=== PATIENT | female | born 1980 | race Caucasian/White ===

== ENCOUNTER 2017-05-27 11:50 | Observation (INO) | payer OTHER ==
[~2017-05-27] VITALS: Ht 162.6 cm; Wt 96.6 kg
--- NOTE | 2017-05-27 04:08 | NUR ---
NS 1000ML IVF STOPPED AT 0408 Addendum: 06/25/17 at 2159 by Gilmer Rodriguez RN WRONG DATE, IVF STOPPED AT 05/28 Addendum: 06/25/17 at 2203 by Gilmer Rodriguez RN AND WRONG TIME
[~2017-05-27 11:50] MED LIST: ACET-8386 PO; AMIT25TA28; AMLO-27; Pantoprazole Sodium PO
[2017-05-27 12:15] VITALS: BP 146/82
[2017-05-27] MEDS ORDERED: NORE0.3532 PO (12:25)
[2017-05-27] MEDS ORDERED: IND20 PO (12:25)
--- NOTE | 2017-05-27 12:25 | NUR ---
PATIENT PRESENTS TO ED WITH LLQ PAIN THAT RADIATES TO LOW BACK AND PELVIC AREAS. DENIES PAINFUL URINATION.DENIES INJURY. Hx OF RT OVARIAN CYST,CHOLECYSTECTOMY,CSECTION X2,LT. WRIST SURGERY .DENIES N/V/D; SKIN IS PINK/WARM/DRY; AAOX4 WITH EVEN AND STEADY GAIT; LUNGS CLEAR BL; HR EVEN AND REGULAR; PT DENIES ANY FEVER, CP, SOB, OR COUGH AT THIS TIME; PATIENT STATES PAIN OF 6/10 AT THIS TIME;PATIENT POSITIONED FOR COMFORT; HOB ELEVATED; BEDRAILS UP X2; BED DOWN. ALL MONITORS IN PLACED;ER MD MADE AWARE OF PT STATUS.
--- NOTE | 2017-05-27 12:33 | NUR ---
DR VICENTE AT BEDSIDE.
[2017-05-27] MEDS ORDERED: KETOROLAC 60 MG/2 ML VIAL IM ONE (14:40)
--- NOTE | 2017-05-27 14:51 | NUR ---
WENT TO CT SCAN ACCOMPANIED BY TECH.
--- NOTE | 2017-05-27 14:58 | NUR ---
BACK FROM CT SACN ACCOMPANIED BY TECH.
[2017-05-27] MEDS ORDERED: metroNIDAZOLE 500 MG/NS PREMIX 100 ML IV ONE (15:40)
[2017-05-27] MEDS ORDERED: HYDROmorphone 1 MG/ML AMP IVP ONE (15:40)
[2017-05-27] MEDS ORDERED: cefTRIAXone 1,000 MG VIAL ONE (15:56)
[2017-05-27 16:18] LABS: BASOPHILS # (AUTO) 0.2 K/uL (0.00-0.22); BASOPHILS % (AUTO) 1.6 % (0.0-2.0); EOSINOPHILS # (AUTO) 0.1 K/uL (0-0.4); EOSINOPHILS % (AUTO) 0.8 % (0.0-4.0); HEMATOCRIT 40.5 % (36-48); HEMOGLOBIN 13.3 g/dL (12.0-16.0); LYMPHOCYTES # (AUTO) 2.5 K/uL (2.5-16.5); LYMPHOCYTES % (AUTO) 22.8 % (20.5-51.1); MEAN CORPUSCULAR HEMOGLOBIN 28 pg (27-31); MEAN CORPUSCULAR HGB CONC 33 g/dL (33-37); MEAN CORPUSCULAR VOLUME 85 fL (80-94); MONOCYTES # (AUTO) 0.7 K/uL (0.8-1.0); MONOCYTES % (AUTO) 6.5 % (1.7-9.3); NEUTROPHILS # (AUTO) 7.5 K/uL (1.8-7.7); NEUTROPHILS % (AUTO) 68.3 % (42.2-75.2); PLATELET COUNT (AUTO) 291 K/uL (140-450); RED BLOOD CELL COUNT(AUTO) 4.76 MIL/uL (4.20-5.40); RED CELL DISTRIBUTION WIDTH 12.8 % (11.6-13.7)
--- NOTE | 2017-05-27 16:26 | NUR ---
1 ST BLOOD CULTURE WAS DRAWN AT AROUND 1548;2ND VIAL AT AROUND 1558;
[2017-05-27 16:33] LABS: ANION GAP 15.3 (8-16); CARBON DIOXIDE 25.3 mmol/L (21-32); CREATININE 0.6 mg/dL (0.6-1.3); POTASSIUM 3.6 mmol/L (3.5-5.1)
[2017-05-27 16:39] LABS: ALBUMIN 4.1 g/dL (3.4-5.0); TOTAL BILIRUBIN 0.7 mg/dL (0.0-1.0)
[2017-05-27 16:42] LABS: PROTHROMBIN TIME 10.3 secs (10.8-13.4)
[2017-05-27 17:47] LABS: APPEARANCE,URINE CLEAR (CLEAR); BILIRUBIN,URINE 1+ (NEGATIVE); BLOOD, URINE NEGATIVE (NEGATIVE); COLOR,URINE YELLOW (YELLOW); LEUKOCYTE ESTERASE ,URINE NEGATIVE (NEGATIVE); NITRITE, URINE NEGATIVE (NEGATIVE); UGLUCOSE NEGATIVE (NEGATIVE)
--- NOTE | 2017-05-27 17:56 | NUR ---
PT VERBALIZES DECREASED OF PAIN FROM 8/10 TO 2/10;NO FACIAL GRIMMACING NOTED;WILL CONTINUE TO MONITOR PT.
[2017-05-27 18:01] LABS: BARBITURATE, URINE NEG. ng/ml (NEG <=200); BENZODIAZEPINE, URINE NEG. ng/mL (NEG <=200); CANNABINOID, URINE NEG. ng/mL (NEG <=50); COCAINE, URINE NEG. ng/mL (NEG <=300); OPIATE, URINE NEG. ng/mL (NEG <=2000); PHENCYCLIDINE SCREEN,URINE NEG. ng/mL (NEG <=25)
[2017-05-27] MEDS ORDERED: ONDANSETRON 4 MG/2 ML VIAL IVP ONE (18:05)
[2017-05-27] MEDS: NACL 0.9% 1,000 ML IV SCH (18:08)
[2017-05-27] MEDS ORDERED: ACETAMINOPHEN 325 MG TAB PO PRN (18:10)
[2017-05-27] MEDS ORDERED: MORPHINE SULFATE 2 MG/ML SYR IVP PRN (18:10)
[2017-05-27] MEDS ORDERED: LORazepam 2 MG/ML VIAL IVP PRN (18:10)
[2017-05-27] MEDS ORDERED: ONDANSETRON 4 MG/2 ML VIAL IVP PRN (18:10)
[2017-05-27] MEDS ORDERED: HYDROcodone/APAP 5/325 MG 1 TAB TAB PO PRN (18:10)
[2017-05-27] MEDS ORDERED: LEVOFLOXACIN 750 MG/D5W PREMIX 150 ML IV SCH (19:00)
--- NOTE | 2017-05-27 19:02 | NUR ---
TRIED TO GIVE REPORT;THEY SAID THEY WILL CALL BACK RN TALITA IS BUSY RT NOW;
--- NOTE | 2017-05-27 19:09 | NUR ---
Patient will be admitted to care of DR FISCHER. Admited to MS. Will go to room 104 A. Belongings list completed. Report to ALEX RECINOS.
[2017-05-27 19:30] VITALS: BP 120/70
--- NOTE | 2017-05-27 19:30 | NUR ---
PATIENT ADMITTED TO THE UNIT FROM THE EMERGENCY DEPARTMENT. PATIENT IS AWAKE, ALERT AND ORIENTED. PATIENT'S FAMILY IS AT BEDSIDE. PATIENT IS AMBULATORY. NO SIGNS AND SYMPTOMS OF DISTRESS NOTED. NO COMPLAINT'S OF PAIN AT THIS TIME. SKIN IS INTACT. IV SITE NOTED ON LEFT AC, SALINE LOCKED. BED IN LOWEST POSITION, SIDE RAILS UP AND CALL LIGHT WITHIN REACH, WILL CONTINUE TO MONITOR.
--- NOTE | 2017-05-27 20:19 | NUR ---
LEVAQUIN 750MG/DEXTROSE 5% PREMIX GIVEN VIA IVPB. RUNNING AT 100ML/HR
--- NOTE | 2017-05-27 21:49 | NUR ---
LEVAQUIN 750MG/DEXTROSE 5% PREMIX FINISHED.
--- NOTE | 2017-05-27 22:00 | NUR ---
CHECKED ON PATIENT, PATIENT IS AWAKE WATCHING TV ON HER PHONE. NO SIGNS AND SYMPTOMS OF DISTRESS NOTED. NO COMPLAINTS OF PAIN AT THIS TIME. WILL CONTINUE TO MONITOR.
[2017-05-27] MEDS: metroNIDAZOLE 500 MG/NS PREMIX 100 ML IV SCH (22:17)
--- NOTE | 2017-05-27 22:17 | NUR ---
FLAGYL 500MG/SODIUM CHLORIDE 0.9% PREMIX STARTED IVPB. RUNNING AT 100ML/HR
[2017-05-28] VITALS: BP 112/70
[2017-05-28] MEDS: NACL 0.9% 1,000 ML IV SCH (04:08)
[2017-05-28] MEDS: metroNIDAZOLE 500 MG/NS PREMIX 100 ML IV SCH (04:29)
--- NOTE | 2017-05-28 04:29 | NUR ---
FLAGYL 500MG/SODIUM CHLORIDE 0.9% PREMIX STARTED IVPB. RUNNING AT 100ML/HR
--- NOTE | 2017-05-28 05:29 | NUR ---
FLAGYL 500MG/SODIUM CHLORIDE 0.9% PREMIX 100ML ADMINISTERED VIA IVPB. FINISHED AT 528
--- NOTE | 2017-05-28 06:08 | NUR ---
NS 1000ML IVF STOPPED AT 0608
--- NOTE | 2017-05-28 07:11 | NUR ---
PATIENT REPORT GIVEN TO MORNING NURSE. PATIENT IS IN STABLE CONDITION
--- NOTE | 2017-05-28 07:20 | NUR ---
REPORT RECEIVED FROM FULFILLMENT MAIL CLERK NURSE, PT RESTING QUIETLY IN NAD, RESP EVEN UNLABORED, SKIN WARM DRY COLOR WNL, PT DENIES N/V, PT STATES PAIN IS 5/10 ABD BUT DENIES NEED FOR PAIN MED, ABD SOFT NON TENDER, IVF INFUSING WELL, SITE CLEAR, PLAN OF CARE REVIEWED, PT VERBALIZED FULL UNDERSTANDING, CALL PACHECO WITHIN REACH, SIDE RAILS UP X2, WILL COTINUE TO MONITOR.
[2017-05-28 07:34] LABS: BASOPHILS # (AUTO) 0.2 K/uL (0.00-0.22); EOSINOPHILS # (AUTO) 0.1 K/uL (0-0.4); EOSINOPHILS % (AUTO) 0.9 % (0.0-4.0); HEMATOCRIT 37.4 % (36-48); HEMOGLOBIN 12.3 g/dL (12.0-16.0); LYMPHOCYTES # (AUTO) 2.4 K/uL (2.5-16.5); LYMPHOCYTES % (AUTO) 29.2 % (20.5-51.1); MEAN CORPUSCULAR HEMOGLOBIN 28 pg (27-31); MEAN CORPUSCULAR HGB CONC 33 g/dL (33-37); MEAN CORPUSCULAR VOLUME 86 fL (80-94); MONOCYTES # (AUTO) 0.8 K/uL (0.8-1.0); MONOCYTES % (AUTO) 9.4 % (1.7-9.3); NEUTROPHILS # (AUTO) 4.9 K/uL (1.8-7.7); NEUTROPHILS % (AUTO) 58.5 % (42.2-75.2); PLATELET COUNT (AUTO) 234 K/uL (140-450); RED BLOOD CELL COUNT(AUTO) 4.35 MIL/uL (4.20-5.40); RED CELL DISTRIBUTION WIDTH 12.7 % (11.6-13.7); WHITE BLOOD COUNT (AUTO) 8.4 K/uL (4.8-10.8)
[2017-05-28 07:48] LABS: ANION GAP 14.2 (8-16); CARBON DIOXIDE 25.8 mmol/L (21-32); CREATININE 0.6 mg/dL (0.6-1.3)
[2017-05-28 08:00] VITALS: BP 128/78
--- NOTE | 2017-05-28 08:50 | NUR ---
SCHEDULED LOVENOX GIVEN SQ, PT EMMANUEL WELL, PT SITTING UP EATING BREAKFAST, DENIES N/V, DENIES PAIN, DENIES ANY IMMEDIATE NEEDS, WILL CONTINUE TO MONITOR.
[2017-05-28] MEDS ORDERED: ENOXAPARIN 30 MG/0.3 ML SYR SUBQ SCH (09:00)
[2017-05-28] MEDS ORDERED: METR500T1 PO (10:24)
[2017-05-28] MEDS ORDERED: ACET-2869 PO (10:24)
--- NOTE | 2017-05-28 12:05 | NUR ---
DC INSTRUCTION AND RX GIVEN AND EXPLAINED TO PT, PT VERBALIZED FULL UNDERSTANDING, IV DC'D, CATH TIP INTACT, BLEEDING CONTROLLED, PT EMMANUEL WELL, PT C/O ABD PAIN, OFFERED NORCO BUT PT STATES SHE IS DRIVING HERSELF HOME, SO SHE PREFERS TO TAKE MED WHEN SHE GETS HOME, PT STATES PAIN IS TOLERABLE AT THIS TIME, PT UP OUT OF BED ON HER OWN, AMBULATES WITH STEADY GAIT, DC HOME NOW, ESCORTED OUT TO FRONT LOBBY.
== END 2017-05-28 12:05 | disposition home or self-care (01) ==
LOC: MED 11:50 → MTU 18:22 → UNDOADMIN 18:22 → MTU 18:30
PROVIDERS: ADMIT Hospitalist; ATTEND Hospitalist
DX: K57.92 Diverticulitis of intestine, part unspecified, without perforation or abscess without bleeding (principal); I10 Essential (primary) hypertension; E11.9 Type 2 diabetes mellitus without complications; G43.909 Migraine, unspecified, not intractable, without status migrainosus; E66.9 Obesity, unspecified; Z68.35 Body mass index [BMI] 35.0-35.9, adult; Z98.890 Other specified postprocedural states; N83.209 Unspecified ovarian cyst, unspecified side
CPT/HCPCS: 36415; 71010; 74176; 76830; 76856; 80048; 80053; 80305; 81003; 81025; 82150; 83690; 83735; 85025; 85610; 85730; 87081; 93005; 96361; 96365; 96366; 96367; 96372; 96375; 96376; 99285; G0378; J0696; J1170; J1650; J1885; J1956; J2405; J3490; J7030; J7060; Q0092; 96368

== ENCOUNTER 2017-06-01 20:10 | Observation (INO) | payer OTHER ==
[~2017-06-01] VITALS: Ht 162.6 cm; Wt 97.5 kg
[~2017-06-01 20:10] MED LIST changes: +ACET-2869 PO; -ACET-8386 PO; -AMIT25TA28; -AMLO-27; +IND20 PO; +METR500T1 PO; +NORE0.3532 PO; -Pantoprazole Sodium PO
[2017-06-01 20:24] VITALS: BP 145/90
[2017-06-01] MEDS ORDERED: metroNIDAZOLE 500 MG/NS PREMIX 100 ML IV ONE (20:40)
[2017-06-01] MEDS ORDERED: FAMOTIDINE 20 MG/2 ML VIAL IVP ONE (20:40)
[2017-06-01] MEDS ORDERED: LEVOFLOXACIN 500 MG/D5W PREMIX 100 ML IV ONE (20:40)
[2017-06-01] MEDS ORDERED: NACL 0.9% 1,000 ML IV ONE (20:40)
[2017-06-01] MEDS ORDERED: NAPR500T1 PO (20:43)
[2017-06-01] MEDS ORDERED: ONDA4ODT1 PO ×2 (20:43→20:49)
[2017-06-01] MEDS ORDERED: IND20 PO (20:49)
[2017-06-01] MEDS ORDERED: ACET-2869 PO (20:49)
[2017-06-01] MEDS ORDERED: METR250T2 PO (20:49)
[2017-06-01 21:26] LABS: BASOPHILS # (AUTO) 0.2 K/uL (0.00-0.22); BASOPHILS % (AUTO) 1.5 % (0.0-2.0); EOSINOPHILS # (AUTO) 0.1 K/uL (0-0.4); EOSINOPHILS % (AUTO) 0.8 % (0.0-4.0); HEMATOCRIT 40.2 % (36-48); HEMOGLOBIN 12.9 g/dL (12.0-16.0); LYMPHOCYTES # (AUTO) 2.6 K/uL (2.5-16.5); LYMPHOCYTES % (AUTO) 22.4 % (20.5-51.1); MEAN CORPUSCULAR HEMOGLOBIN 28 pg (27-31); MEAN CORPUSCULAR HGB CONC 32 g/dL (33-37); MEAN CORPUSCULAR VOLUME 86 fL (80-94); MONOCYTES # (AUTO) 0.7 K/uL (0.8-1.0); MONOCYTES % (AUTO) 6.1 % (1.7-9.3); NEUTROPHILS % (AUTO) 69.2 % (42.2-75.2); PLATELET COUNT (AUTO) 333 K/uL (140-450); RED CELL DISTRIBUTION WIDTH 12.8 % (11.6-13.7); WHITE BLOOD COUNT (AUTO) 11.6 K/uL (4.8-10.8)
[2017-06-01 21:31] LABS: BILIRUBIN,URINE NEGATIVE (NEGATIVE); BLOOD, URINE NEGATIVE (NEGATIVE); LEUKOCYTE ESTERASE ,URINE TRACE (NEGATIVE); NITRITE, URINE NEGATIVE (NEGATIVE); PH,URINE 5.5 (5.0-9.0); UGLUCOSE NEGATIVE (NEGATIVE)
[2017-06-01 21:33] LABS: ANION GAP 12.4 (8-16); CARBON DIOXIDE 28.4 mmol/L (21-32); CREATININE 0.7 mg/dL (0.6-1.3); POTASSIUM 3.8 mmol/L (3.5-5.1)
[2017-06-01 21:35] LABS: APPEARANCE,URINE HAZY (CLEAR)
[2017-06-01 21:36] LABS: COLOR,URINE AMBER (YELLOW)
[2017-06-01 21:38] LABS: ALBUMIN 3.8 g/dL (3.4-5.0); TOTAL BILIRUBIN 0.3 mg/dL (0.0-1.0)
[2017-06-01 21:43] LABS: RBC,URINE NONE SEEN /HPF (0-5); WBC,URINE 0-5 (RARE) /HPF (0-5)
[2017-06-01 22:10] VITALS: BP 118/70
[2017-06-01] MEDS: NACL 0.9% 1,000 ML IV SCH (23:25)
[2017-06-01] MEDS ORDERED: MORPHINE SULFATE 2 MG/ML SYR IVP PRN (23:35)
[2017-06-01] MEDS ORDERED: ONDANSETRON 4 MG/2 ML VIAL IVP PRN (23:35)
[2017-06-01] MEDS ORDERED: ACETAMINOPHEN EXTRA STRENGTH 500 MG TAB PO PRN (23:35)
[2017-06-02] VITALS: BP 107/57
[2017-06-02 04:00] VITALS: BP 111/63
[2017-06-02] MEDS: metroNIDAZOLE 500 MG/NS PREMIX 100 ML IV SCH ×3 (04:55→20:09)
[2017-06-02 06:58] LABS: BASOPHILS # (AUTO) 0.2 K/uL (0.00-0.22); BASOPHILS % (AUTO) 2.1 % (0.0-2.0); EOSINOPHILS # (AUTO) 0.1 K/uL (0-0.4); EOSINOPHILS % (AUTO) 0.9 % (0.0-4.0); HEMATOCRIT 36.8 % (36-48); HEMOGLOBIN 12.2 g/dL (12.0-16.0); LYMPHOCYTES # (AUTO) 2.4 K/uL (2.5-16.5); LYMPHOCYTES % (AUTO) 28.2 % (20.5-51.1); MEAN CORPUSCULAR HEMOGLOBIN 28 pg (27-31); MEAN CORPUSCULAR HGB CONC 33 g/dL (33-37); MEAN CORPUSCULAR VOLUME 85 fL (80-94); MONOCYTES # (AUTO) 0.6 K/uL (0.8-1.0); MONOCYTES % (AUTO) 7.6 % (1.7-9.3); NEUTROPHILS # (AUTO) 5.2 K/uL (1.8-7.7); NEUTROPHILS % (AUTO) 61.2 % (42.2-75.2); PLATELET COUNT (AUTO) 283 K/uL (140-450); RED BLOOD CELL COUNT(AUTO) 4.34 MIL/uL (4.20-5.40); RED CELL DISTRIBUTION WIDTH 12.9 % (11.6-13.7); WHITE BLOOD COUNT (AUTO) 8.5 K/uL (4.8-10.8)
[2017-06-02 07:31] LABS: ALBUMIN 3.2 g/dL (3.4-5.0); ANION GAP 12.8 (8-16); CARBON DIOXIDE 25.7 mmol/L (21-32); CREATININE 0.6 mg/dL (0.6-1.3); PHOSPHORUS 3.6 mg/dL (2.5-4.9); POTASSIUM 3.5 mmol/L (3.5-5.1); TOTAL BILIRUBIN 0.5 mg/dL (0.0-1.0)
[2017-06-02 07:43] VITALS: BP 108/67
[2017-06-02] MEDS: PANTOPRAZOLE 40 MG TABEC PO SCH (08:54)
[2017-06-02] MEDS: HYDROcodone/APAP 5/325 MG 1 TAB TAB PO PRN ×2 (11:42→20:07)
[2017-06-02 11:55] VITALS: BP 130/80
[2017-06-02 15:56] VITALS: BP 122/71
[2017-06-02] MEDS: NACL 0.9% 1,000 ML IV SCH (16:42)
[2017-06-02 20:00] VITALS: BP 139/87
[2017-06-02] MEDS ORDERED: LEVOFLOXACIN 500 MG/D5W PREMIX 100 ML IV SCH (21:00)
[2017-06-03] VITALS: BP 102/54
[2017-06-03 04:00] VITALS: BP 102/60
[2017-06-03] MEDS: metroNIDAZOLE 500 MG/NS PREMIX 100 ML IV SCH (05:27)
[2017-06-03 06:01] LABS: BASOPHILS # (AUTO) 0.3 K/uL (0.00-0.22); BASOPHILS % (AUTO) 3.7 % (0.0-2.0); EOSINOPHILS # (AUTO) 0.1 K/uL (0-0.4); EOSINOPHILS % (AUTO) 1.1 % (0.0-4.0); HEMATOCRIT 34.6 % (36-48); HEMOGLOBIN 11.6 g/dL (12.0-16.0); LYMPHOCYTES # (AUTO) 2.9 K/uL (2.5-16.5); LYMPHOCYTES % (AUTO) 36.6 % (20.5-51.1); MEAN CORPUSCULAR HEMOGLOBIN 29 pg (27-31); MEAN CORPUSCULAR HGB CONC 33 g/dL (33-37); MEAN CORPUSCULAR VOLUME 86 fL (80-94); MONOCYTES # (AUTO) 0.7 K/uL (0.8-1.0); MONOCYTES % (AUTO) 8.4 % (1.7-9.3); NEUTROPHILS # (AUTO) 3.9 K/uL (1.8-7.7); NEUTROPHILS % (AUTO) 50.2 % (42.2-75.2); PLATELET COUNT (AUTO) 253 K/uL (140-450); RED BLOOD CELL COUNT(AUTO) 4.05 MIL/uL (4.20-5.40); RED CELL DISTRIBUTION WIDTH 12.7 % (11.6-13.7); WHITE BLOOD COUNT (AUTO) 7.9 K/uL (4.8-10.8)
[2017-06-03 06:26] LABS: ANION GAP 10.8 (8-16); CARBON DIOXIDE 25.9 mmol/L (21-32); CREATININE 0.6 mg/dL (0.6-1.3); POTASSIUM 3.7 mmol/L (3.5-5.1)
[2017-06-03 08:00] VITALS: BP 126/72
[2017-06-03] MEDS: NACL 0.9% 1,000 ML IV SCH (08:45)
[2017-06-03] MEDS: PANTOPRAZOLE 40 MG TABEC PO SCH (08:51)
[2017-06-03] MEDS: HYDROcodone/APAP 5/325 MG 1 TAB TAB PO PRN (08:56)
== END 2017-06-03 11:20 | disposition home or self-care (01) ==
LOC: MED 20:10 → MTU 21:53
PROVIDERS: ADMIT Hospitalist; ATTEND Hospitalist
DX: K92.2 Gastrointestinal hemorrhage, unspecified (principal); I10 Essential (primary) hypertension; G43.909 Migraine, unspecified, not intractable, without status migrainosus; E66.9 Obesity, unspecified; K57.92 Diverticulitis of intestine, part unspecified, without perforation or abscess without bleeding
CPT/HCPCS: 36415; 80048; 80053; 81001; 81025; 82150; 83690; 83735; 84100; 85025; 87081; 96361; 96365; 96366; 96367; 96375; 99285; G0378; J1956; J2270; J2405; J3490; J7030

== ENCOUNTER 2017-07-21 22:19 | Inpatient (IN) | payer OTHER ==
[~2017-07-21] VITALS: Ht 162.6 cm; Wt 95.7 kg
[~2017-07-21 22:19] MED LIST changes: +METR250T2 PO; -METR500T1 PO; +ONDA4ODT1 PO
[2017-07-21 22:32] VITALS: BP 128/85
--- NOTE | 2017-07-21 22:57 | NUR ---
PT. AMBULATES TO ER BED 3
--- NOTE | 2017-07-21 23:00 | NUR ---
36Y/F PT. PRESENTS TO ED WITH C/O ABDOMINAL PAIN X 1 DAY. PT. STATES PAIN WITH N/V/D, NO FEVER. HX. DIVERTICULITIS. AAO X4, AMBULATORY WITH STEADY GAIT. RESPIRATIONS ROOM AIR, EVEN AND UNLABORED. ABDOMEN SOFT, NON TENDER, HYPOACTIVE BS X4, C/O FEELING NAUSEATED, PAIN 8/10. VS, HR 114, ER MD MADE AWARE OF PT. STATUS.
--- NOTE | 2017-07-21 23:10 | NUR ---
Patient being evaluated by DR. PMIENTEL at bedside.
[2017-07-21] MEDS ORDERED: NACL 0.9% 1,000 ML IV ONE (23:21)
[2017-07-21] MEDS ORDERED: MORPHINE SULFATE 4 MG/ML SYR IVP ONE (23:25)
[2017-07-21] MEDS ORDERED: ONDANSETRON 4 MG/2 ML VIAL IVP ONE (23:25)
[2017-07-21 23:38] LABS: HEMATOCRIT 36.1 % (36-48); HEMOGLOBIN 11.9 g/dL (12.0-16.0); MEAN CORPUSCULAR HEMOGLOBIN 28 pg (27-31); MEAN CORPUSCULAR HGB CONC 33 g/dL (33-37); MEAN CORPUSCULAR VOLUME 85 fL (80-94); PLATELET COUNT (AUTO) 230 K/uL (140-450); RED BLOOD CELL COUNT(AUTO) 4.23 MIL/uL (4.20-5.40); RED CELL DISTRIBUTION WIDTH 13.8 % (11.6-13.7); WHITE BLOOD COUNT (AUTO) 14.4 K/uL (4.8-10.8)
[2017-07-21 23:43] LABS: BILIRUBIN,URINE NEGATIVE (NEGATIVE); BLOOD, URINE 3+ (NEGATIVE); COLOR,URINE YELLOW (YELLOW); LEUKOCYTE ESTERASE ,URINE NEGATIVE (NEGATIVE); NITRITE, URINE NEGATIVE (NEGATIVE); UGLUCOSE NEGATIVE (NEGATIVE)
[2017-07-21 23:49] LABS: ANION GAP 13.8 (8-16); CARBON DIOXIDE 23.5 mmol/L (21-32); CREATININE 0.6 mg/dL (0.6-1.3); POTASSIUM 3.3 mmol/L (3.5-5.1)
[2017-07-21 23:49] LABS: APPEARANCE,URINE SLIGHTLY HAZY (CLEAR)
[2017-07-21 23:55] LABS: ALBUMIN 3.1 g/dL (3.4-5.0); TOTAL BILIRUBIN 1.3 mg/dL (0.0-1.0)
[2017-07-21 23:56] LABS: LYMPHOCYTES % (MANUAL) 11 % (20-46); MONOCYTES % (MANUAL) 6 % (5-12)
[2017-07-22] LABS: RBC,URINE 20-50 /HPF (0-5)
[2017-07-22] MEDS ORDERED: HYDROmorphone 1 MG/ML AMP IVP ONE (00:05)
[2017-07-22] MEDS ORDERED: metroNIDAZOLE 500 MG/NS PREMIX 100 ML IV ONE ×2 (00:10→06:15)
[2017-07-22] MEDS ORDERED: PIPERACILLIN/TAZOBACTAM 3.375 GM in DEXTROSE 5% 50 ML IV ONE (00:10)
[2017-07-22] MEDS ORDERED: PIPERACILLIN/TAZOBACTAM 3.375 GM VIAL IV ONE (00:21)
[2017-07-22] MEDS ORDERED: NACL 0.9% 1,000 ML IV ONE (00:25)
--- NOTE | 2017-07-22 00:30 | NUR ---
O2 SAT ROOM AIR 88% PLACE ON O2 2 LPM VIA NC O2 SAT 99%. ER MADE AWARE.
[2017-07-22] MEDS: NACL 0.9% 1,000 ML IV SCH ×3 (01:00→20:26)
[2017-07-22] MEDS ORDERED: HYDROmorphone 1 MG/ML AMP IVP PRN (01:00)
[2017-07-22] MEDS ORDERED: ALUMINUM HYD/MAG/SIMETHICONE 30 ML UDC PO PRN (01:05)
[2017-07-22] MEDS ORDERED: ZOLPIDEM 5 MG TAB PO PRN (01:05)
[2017-07-22] MEDS ORDERED: diphenhydrAMINE 50 MG/ML VIAL IVP PRN (01:05)
[2017-07-22] MEDS ORDERED: guaiFENesin DM 200/20 MG-10 ML 10 ML UDC PO PRN (01:05)
[2017-07-22] MEDS ORDERED: ACETAMINOPHEN 650 MG SUPP RC PRN (01:05)
[2017-07-22] MEDS ORDERED: MAGNESIUM OXIDE 400 MG TAB PO PRN (01:05)
[2017-07-22] MEDS ORDERED: HYDROcodone/APAP 5/325 MG 1 TAB TAB PO PRN ×2 (01:05)
[2017-07-22] MEDS ORDERED: BISACODYL 10 MG SUPP RC PRN (01:05)
[2017-07-22] MEDS ORDERED: POTASSIUM CHLORIDE 40 MEQ, LIDOCAINE 1% 25 MG in NACL 0.9% 250 ML IV PRN (01:05)
[2017-07-22] MEDS ORDERED: SODIUM PHOSPHATE 118 ML ENEM RC PRN (01:05)
[2017-07-22] MEDS ORDERED: LORazepam 2 MG/ML VIAL IVP PRN (01:05)
[2017-07-22] MEDS ORDERED: ACETAMINOPHEN 325 MG TAB PO PRN (01:05)
[2017-07-22] MEDS ORDERED: MAG SULF 2000 MG/WATER PREMIX 50 ML IV PRN (01:05)
[2017-07-22] MEDS ORDERED: ALBUTEROL 0.083% 2.5 MG/3 ML NEBU INH PRN (01:05)
[2017-07-22] MEDS ORDERED: POTASSIUM CHLORIDE 10 MEQ TABER PO PRN (01:05)
[2017-07-22] MEDS ORDERED: IPRATROPIUM 0.02% 0.5 MG/2.5 ML NEBU INH PRN (01:05)
[2017-07-22] MEDS ORDERED: cloNIDine 0.1 MG TAB PO PRN (01:05)
[2017-07-22] MEDS ORDERED: DOCUSATE SODIUM 250 MG GELCAP PO PRN (01:05)
--- NOTE | 2017-07-22 01:55 | NUR ---
Patient will be admitted to care of . Admited to TELEMETRY. Will go to [id number]. Belongings list completed. Report to ALEX NAVARRO.
--- NOTE | 2017-07-22 02:05 | NUR ---
PT ARRIVED FROM ER [facility]. PT IS ON O2 2L NC. NO SIGNS OF ACUTE DISTRESS NOTED. BREATH SOUNDS CLEAR UPON AUSCULTATION. RESPIRATIONS EVEN AND UNLABORED. SKIN COLOR APPROPRIATE TO ETHNICITY. SKIN TEMP WARM TO TOUCH. SKIN INTACT. IV ACCESS INTACT, PATENT AND ASYMPTOMATIC. AMBULATORY. PLAN OF CARE DISCUSSED, PT VERBALIZED UNDERSTANDING. BED IN LOW POSITION, BILATERAL HALF SIDE RAILS UP, CALL LIGHT WITHIN REACH, WILL CONTINUE TO MONITOR.
[2017-07-22] MEDS: MORPHINE SULFATE 2 MG/ML SYR IVP PRN ×3 (03:09→20:13)
--- NOTE | 2017-07-22 03:20 | NUR ---
ADMINISTERED K DUR 40MEQ PRN ONCE. PT POTASSIUM LEVEL IS 3.3. PT TOLERATED WELL, WILL CONTINUE TO MONITOR.
[2017-07-22 04:00] VITALS: BP 103/60
[2017-07-22] MEDS: metroNIDAZOLE 500 MG/NS PREMIX 100 ML IV SCH ×3 (06:15→20:25)
--- NOTE | 2017-07-22 06:20 | NUR ---
PT IS SLEEPING, AROUSABLE TO VOICE. NO SIGNS OF ACUTE DISTRESS NOTED. RESPIRATIONS EVEN AND UNLABORED. BED IN LOW POSITION, BILATERAL HALF SIDE RAILS UP, CALL LIGHT WITHIN REACH, WILL CONTINUE TO MONITOR.
--- NOTE | 2017-07-22 07:15 | NUR ---
RECEIVED PT REPORT FROM [employer] AT PT BEDSIDE. PT IS AOX4. IV NOTED TO THE LEFT AC, 18 G, RUNNING NS 100ML/HR. PT C/O OF RIGHT LOWER ABD PAIN, 06/11. WILL MEDICATE. RESPIRATORY EVEN AND NO ACUTE S/S OF DISTRESS NOTED. BED IN LOWEST POSITION, CALL LIGHT WITHIN REACH.
--- NOTE | 2017-07-22 07:38 | NUR ---
ENDORSED PT TO AM NURSE FOR CONTINUITY OF CARE. PT IS IN STABLE CONDITION.
[2017-07-22 08:00] VITALS: BP 118/66
[2017-07-22] MEDS: PROPRANOLOL 20 MG TAB PO SCH ×2 (08:49→20:24)
[2017-07-22] MEDS: LEVOFLOXACIN 500 MG/D5W PREMIX 100 ML IV SCH (08:50)
--- NOTE | 2017-07-22 10:50 | NUR ---
PT HAS BEEN SEEN BY DR. GOLDMAN. DR GOLDMAN WILL PUT IN NEW ORDERS.
--- NOTE | 2017-07-22 11:00 | NUR ---
SPOKE WITH . ORDERED TO INCREASE DILAUDID TO 1MG PRN AND KEEP THE SAME TIME INTERVAL. ORDERED TO ADVANCE THE DIET TO FULL LIQUID.
[2017-07-22] MEDS: ONDANSETRON 4 MG/2 ML VIAL IVP PRN ×2 (11:37→20:20)
[2017-07-22] MEDS: HYDROmorphone 1 MG/ML AMP IVP PRN ×3 (11:37→21:53)
--- NOTE | 2017-07-22 12:44 | NUR ---
PATIENT HAS BEEN SCREENED AND CATEGORIZED MODERATE NUTRITION RISK. PATIENT WILL BE SEEN WITHIN 3-5 DAYS OF ADMISSION. 07/24/17-07/26/[address]
--- NOTE | 2017-07-22 15:05 | NUR ---
CM NOTE FAXED H&P TO [facility] [phone] AND GAVE CM EDUAR [phone] VERBAL CLINICAL UPDATE.
[2017-07-22 16:00] VITALS: BP 103/59
--- NOTE | 2017-07-22 16:00 | NUR ---
PT IS TALKING ON THE PHONE, NO S/S OF ACUTE DISTRESS NOTED.
--- NOTE | 2017-07-22 19:30 | NUR ---
ENDORSED PT TO SHIP CEILER NURSE FOR CONTINUITY OF CARE. PT REPORT GIVEN AT BEDSIDE. PT IS IN STABLE CONDITION.
--- NOTE | 2017-07-22 19:31 | NUR ---
RECEIVED PT FROM DAY NURSE REYES RN. PT IN STABLE CONDITION AAOX4, PT IS ON RA. SKIN IS WARM TO TOUCH COLOR WNL. IV TO L AC 18G PATENT AND INTACT. SKIN IS INTACT. RESPIRATIONS ARE EVEN AND UNLABORED, BOWEL SOUNDS PRESENT. INITIAL ASSESSMENT COMPLETED. PLAN OF CARE DISCUSSED WITH PT AT THE BEDSIDE, VERBALIZED UNDERSTANDING. ALL SAFETY PRECAUTIONS MET, CALL LIGHT WITHIN REACH WILL CONTINUE TO MONITOR
[2017-07-22 20:00] VITALS: BP 102/60
[2017-07-22] MEDS ORDERED: KETOROLAC 30 MG/ML VIAL IVP ONE (22:25)
--- NOTE | 2017-07-22 22:25 | NUR ---
PAGED DR. GARCÍA REGARDING PTS PAIN. WAITING CALL BACK
--- NOTE | 2017-07-22 22:30 | NUR ---
DR. GARCÍA PAGED BACK WITH NEW ORDERS.
--- NOTE | 2017-07-22 22:37 | NUR ---
PT DOES NOT WANT NEW PAIN MEDICATION ORDER AT THIS TIME
[2017-07-23] VITALS: BP 104/51
[2017-07-23] MEDS: HYDROmorphone 1 MG/ML AMP IVP PRN (02:01)
[2017-07-23] MEDS ORDERED: KETOROLAC 30 MG/ML VIAL IVP ONE (03:25)
[2017-07-23] MEDS: metroNIDAZOLE 500 MG/NS PREMIX 100 ML IV SCH ×2 (05:25→12:39)
--- NOTE | 2017-07-23 07:26 | NUR ---
RECEIVED PT IN BED. ASLEEP. AROUSABLE TO VOICE. ALERT ORIENTED X4. NO SOB NOTED. DENIES ANY PAIN OR DISCOMFORT AT THIS TIME. PT AMBULATORY. SAFETY PRECAUTION IN PLACE. CALL LIGHT WITHIN REACH.
--- NOTE | 2017-07-23 07:37 | NUR ---
GAVE REPORT AT THE BEDSIDE TO DAY NURSE FOR CONTINUITY OF CARE PT IN STABLE CONDITION.
[2017-07-23 08:00] VITALS: BP 93/47
--- NOTE | 2017-07-23 08:49 | NUR ---
STOOL SPECIMEN OBTAINED AND SENT TO LAB FOR STOOL CULTURE.
[2017-07-23] MEDS: PROPRANOLOL 20 MG TAB PO SCH (09:00)
[2017-07-23] MEDS: NACL 0.9% 1,000 ML IV SCH (09:21)
[2017-07-23] MEDS: LEVOFLOXACIN 500 MG/D5W PREMIX 100 ML IV SCH (09:21)
--- NOTE | 2017-07-23 09:43 | NUR ---
CM NOTE INITIAL REVIEW FAXED TO [facility] [phone] CM EDUAR [phone]
[2017-07-23 10:36] LABS: WHITE BLOOD COUNT (AUTO) 11.7 K/uL (4.8-10.8)
[2017-07-23 10:37] LABS: HEMATOCRIT 30.1 % (36-48); HEMOGLOBIN 9.9 g/dL (12.0-16.0); MEAN CORPUSCULAR HEMOGLOBIN 29 pg (27-31); MEAN CORPUSCULAR HGB CONC 33 g/dL (33-37); MEAN CORPUSCULAR VOLUME 87 fL (80-94)
[2017-07-23 10:38] LABS: BASOPHILS % (AUTO) 0.2 % (0.0-2.0); EOSINOPHILS % (AUTO) 0.3 % (0.0-4.0); LYMPHOCYTES # (AUTO) 1.7 K/uL (2.5-16.5); LYMPHOCYTES % (AUTO) 14.4 % (20.5-51.1); MONOCYTES # (AUTO) 0.6 K/uL (0.8-1.0); MONOCYTES % (AUTO) 5.4 % (1.7-9.3); NEUTROPHILS # (AUTO) 9.3 K/uL (1.8-7.7); NEUTROPHILS % (AUTO) 79.7 % (42.2-75.2); PLATELET COUNT (AUTO) 220 K/uL (140-450); RED CELL DISTRIBUTION WIDTH 14.2 % (11.6-13.7)
[2017-07-23 10:54] LABS: ALBUMIN 2.5 g/dL (3.4-5.0); ANION GAP 12.3 (8-16); CREATININE 0.6 mg/dL (0.6-1.3); POTASSIUM 3.3 mmol/L (3.5-5.1); TOTAL BILIRUBIN 1.2 mg/dL (0.0-1.0)
--- NOTE | 2017-07-23 13:03 | NUR ---
PT REQUESTED FOR A SHOWER. PROVIDED PT WITH SHOWER NEEDS. PT SHOWERED INDEPENDENTLY. NO SOB NOTED. DENIES ANY PAIN OR DISCOMFORT AT THIS TIME.
[2017-07-23] MEDS ORDERED: POTASSIUM CHLORIDE 10 MEQ TABER PO SCH (15:00)
[2017-07-23] MEDS ORDERED: LEVO750T2 PO (15:15)
[2017-07-23] MEDS ORDERED: METR250T2 PO (15:17)
[2017-07-23 15:48] VITALS: BP 131/78
--- NOTE | 2017-07-23 16:05 | NUR ---
DISCHARGE INSTRUCTIONS AND PT TEACHINGS GIVEN AND EXPLAINED TO PT. PT VERBALIZED UNDERSTANDING. NO SOB NOTED. PT DENIES ANY PAIN OR DISCOMFORT AT THIS TIME. PT SIGNED DISCHARGE PAPERS. IV CANNULA REMOVED AND INTACT. NAME ARMBAND REMOVED. PRESCRIPTION GIVEN. REMINDED PT TO FOLLOW UP WITH GI TOMORROW. PT VERBALIZED THAT SHE ALREADY HAS AN APPOINTMENT SCHEDULED TOMORROW. PROVIDED WITH DISCHARGE PACKET. MOTHER OF PT CAME TO CARETAKER PT.WHEELED PT OUT GOING TO THE HOSPITAL PARKING LOT PER [employer] ADVISOR ASSIST. GOING TO THEIR PRIVATE OWNED VEHICLE. PT DISCHARGED ON STABLE CONDITION.
[2017-07-24 09:03] LABS: HEPATITIS B SURFACE ANTIGEN Negative (Negative)
== END 2017-07-23 16:10 | disposition home or self-care (01) | DRG 244 ==
LOC: MED 22:19 → MTU 07-22 01:02
PROVIDERS: ADMIT Hospitalist; ATTEND Hospitalist
DX: K57.32 Diverticulitis of large intestine without perforation or abscess without bleeding (principal); R65.10 Systemic inflammatory response syndrome (SIRS) of non-infectious origin without acute organ dysfunction; I10 Essential (primary) hypertension; D72.829 Elevated white blood cell count, unspecified; Z79.899 Other long term (current) drug therapy
CPT/HCPCS: 36415; 80053; 81001; 81025; 83690; 85025; 86706; 86803; 87045; 87081; 87086; 87340; 96361; 96365; 96368; 96375; 99285; J1170; J1885; J1956; J2270; J2405; J2543; J3490; J7030; J7060